=== PATIENT | male | born 1965 | race African-American/Black ===

== ENCOUNTER 2022-07-01 22:38 | Emergency (ER) | payer MEDICAID ==
[~2022-07-01] VITALS: Ht 170.2 cm; Wt 75.0 kg
[2022-07-01 22:47] VITALS: BP 118/85
[2022-07-02] MEDS ORDERED: ACETAMINOPHEN 325MG TABLET PO ONE (08:00)
== END 2022-07-02 12:05 | disposition home or self-care (01) ==
LOC: ER 22:38
DX: R05.9 Cough, unspecified (principal); B34.9 Viral infection, unspecified; Z21 Asymptomatic human immunodeficiency virus [HIV] infection status; Z20.822 Contact with and (suspected) exposure to COVID-19
CPT/HCPCS: 71045; 87426; 87804; 99284; C9803